=== PATIENT | female | born 1985 | race Caucasian/White ===

== ENCOUNTER → 2016-06-14 | Outpatient (CLI) | payer OTHER ==
[2016-06-14 13:16] LABS: Glucose 3 Hour, Gest 127 mg/dL
== END | disposition home or self-care (01) ==
LOC: LABWHC1 08:38
PROVIDERS: ATTEND Obstetrics & Gynecology
DX: O99.810 Abnormal glucose complicating pregnancy (principal); Z3A.00 Weeks of gestation of pregnancy not specified
CPT/HCPCS: 36415; 82951; 82952

== ENCOUNTER → 2018-01-29 | Outpatient (CLI) | payer OTHER ==
[2018-01-30 11:09] LABS: Penicillium notatum IgE Class CLASS 0
== END ==
LOC: LABWHC1 10:56
PROVIDERS: ATTEND Allergy & Immunology
DX: J30.2 Other seasonal allergic rhinitis (principal); J30.1 Allergic rhinitis due to pollen; T50.995A Adverse effect of other drugs, medicaments and biological substances, initial encounter
CPT/HCPCS: 36415; 86003